=== PATIENT | male | born 1980 | race Caucasian/White ===

== ENCOUNTER 2024-09-20 14:55 | Emergency (ER) | payer OTHER, SELFPAY ==
--- OUTSIDE RECORDS SUMMARY | 2024-09-20 14:57 | XMS_ITS | Clinical Summary ---
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 Primary Care Prov ider Unavailable Allergies Active Allergy Reactions Criticality Noted Date Comments Penicillins 08/09/2010 Medications ACETAMINOPHEN/CA FFEINE (EXCEDRIN ORAL) Take 2 Tabs by mouth. 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 Gender Identity Not on file Sexual Orientation Not on file Obstetrics History Last Filed Vital Signs Vital Sign Reading Time Taken Comments Blood Pressure 128/66 06/08/2013 10:42 PM BANDAGE MAKER Pulse 103 06/08/2013 10:42 PM BANDAGE MAKER Temperature 37.7 C (99.9 F) 06/09/2013 2:13 AM BANDAGE MAKER Respiratory Rate 22 06/08/2013 10:16 PM BANDAGE MAKER Oxygen Saturation 98% 06/08/2013 10:42 PM BANDAGE MAKER Inhaled Oxygen Concentration - - Weight 65.8 kg (145 lb) 06/08/2013 10:16 PM BANDAGE MAKER Height 175.3 cm (5' 9) 06/08/2013 10:16 PM BANDAGE MAKER Body Mass Index 21.41 06/08/2013 10:16 PM BANDAGE MAKER Plan of Treatment Health Maintenance Due Date Last Done Comments Tdap 1993 Depression screening for age 12+ 1994 HIV for age 15-65 1997 BMI (ht and wt on same day) for age 18+ 2000 Hepatitis C screening for ag e 18-79 2000 Tetanus booster 2002 Lipids for age 35-44 2017 COVID-19 vaccine series ( - 2023- season) 2024 Influenza Vaccine (Season Ended) 2025 Pneumococcal series for age 6-49 Aged Out No longer eligible based on patient's age to complete this topic Insurance [employer] ELECT Care Teams Die Cutter Relationship Specialty Start Date End Date Maria Eugenia [facility] PCP - General 04/12/21
[2024-09-20 15:03] VITALS: BP 136/84; PULSE 82; RESP 18; TEMP 36.9; O2SAT 98; BMI 24.2
--- NOTE | 2024-09-20 15:11 | ED.GENADULT ---
HPI - General Adult General Date Seen: 09/20/24 Chief complaint: Eye Problems Stated complaint: Chunk of metal under left eye Time Seen by Provider: 09/20/24 15:10 History of Present Illness HPI narrative: Pleasant 43-year-old female presenting to the ER today with a injury and foreign body pes duration into his left cheek. He was at work using an air hammer when a piece of metal broke off and fluid is face. He did have a small bit of the metal air hammer bit stuck in his face any thinks he pulled it out but he saw something else possibly stuck in there. He feels like the skin of his cheek next to the laceration might be a little bit firm and is worried that there may still be a metallic foreign body there but he is unsure. It did not actually go into his left eye. Bleeding was controlled prior to arrival. He is unsure of his last tetanus shot. He is not sure he wants to have 1 today. He is otherwise generally healthy. Related Data Home Medications ?Medication ?Instructions ?Recorded ?Confirmed No Known Home Medications 09/22/22 09/20/24 Allergies Allergy/AdvReac Type Severity Reaction Status Date / Time Penicillins Allergy Unknown Verified 09/20/24 15:08 [facility] Medical History (Updated 09/20/24 @ 17:06 by Max Mc MD) Viral infection ?B34.9 - Viral infection, unspecified (ICD-10) Social History Smoking Status: Never smoker Exam Narrative: Exam Narrative: Constitutional: Appears well-developed and well-nourished. Active. Non-toxic appearing. HENT: Head: Calvarium atraumatic. Nose: No nasal discharge. Mouth/Throat: Mucous membranes are moist. Pharynx is normal. Tonsils symmetric. Uvula midline. Airway patent. There is a 3 mm linear laceration on the left cheek over the zygoma just a little bit lateral to the mid pupillary line. The foreign body puncture is about 3 cm inferior to the eye and does not seem to involve the globe of the eye or the orbit of the eye or the lower lid. The lacerations on the cheek. Intact infraorbital nerve sensory function. Normal smiling and no facial droop. No intraoral injury. No nasal bleeding. Eyes: Conjunctivae normal and EOM are normal. Pupils are equal, round, and reactive to light. Right eye exhibits no discharge. Left eye exhibits no discharge. No icterus. Neck: Normal range of motion. Neck supple. No adenopathy. No stridor. Cardiovascular: Normal rate and regular rhythm. No murmur heard. No murmurs, rubs, or gallops. Brisk capillary refill Pulmonary/Chest: Effort normal. No stridor. No respiratory distress. Musculoskeletal: Normal range of motion. No edema. No tenderness. No deformity. Neurological: Alert. Normal strength. No cranial nerve deficit or sensory deficit. Coordination normal. GCS eye subscore is 4. GCS verbal subscore is 5. GCS motor subscore is 6. Skin: Skin is warm. No rash noted. Const: Vital Signs, click to edit/add: Vital Signs - 24 hr 09/20/24 15:03 Temperature 98.5 F Pulse Rate [Right Pulse Oximeter] 82 Respiratory Rate 18 Blood Pressure [Ri ght Upper Arm] 136/84 Pulse Oximetry 98 Oxygen Delivery Me thod Room Air Course Vital Signs Vital signs: Initial Vital Signs Temperature 98.5 F 09/20/24 15:03 Temperature Source Temporal Artery Scan 09/20/24 15:03 Pulse Rate 82 09/20/24 15:03 Pulse Rhythm Regular, Irregular 09/20/24 15:03 Pulse Strength 3+ Normal 09/20/24 15:03 Respiratory Rate 18 09/20/24 15:03 Blood Pressure 136/84 09/20/24 15:03 Blood Pressure Mean 101 09/20/24 15:03 Blood Pressure Position Sitting 09/20/24 15:03 Pulse Oximetry 98 09/20/24 15:03 Oxygen Delivery Method Room Air 09/20/24 15:03 Vital Signs Temperature 98.5 F 09/20/24 15:03 Pulse Rate 82 09/20/24 15:03 Respiratory Rate 18 09/20/24 15:03 Blood Pressure 136/84 09/20/24 15:03 Pulse Oximetry 98 09/20/24 15:03 Oxygen Delivery Method Room Air 09/20/24 15:03 Temperature 98.5 F 09/20/24 15:03 Pulse Rate 82 09/20/24 15:03 Respiratory Rate 18 09/20/24 15:03 Blood Pressure 136/84 09/20/24 15:03 Pulse Oximetry 98 09/20/24 15:03 Oxygen Delivery Method Room Air 09/20/24 15:03 Medical Decision Making MDM Narrative Medical decision making narrative: Findings and exam are consistent with an puncture wound to his left cheek that occurred this afternoon while he was at work. He was wearing safety goggles and using an air hammer when the air in her bit broke off and a piece of it struck him in left she just adjacent to the zygoma. Fortunately this is a few cm distant from his eye and there is no evidence for any ocular or orbital injury. With the he does have a small 5 mm puncture wound on the cheek but no definite palpable foreign body on exam. Discussed options for workup including local anesthesia with exploration forceps verses imaging with x-ray. Patient says he does not like needles and would prefer to get x-ray to see if there really is a foreign body in there or not. X-rays obtained confirms a foreign body. After this, with verbal consent we did administer local anesthesia with lidocaine and removed the foreign body using splinter forceps. After the foreign body was removed, the wound was cleansed. We closed the laceration as noted above. There is no evidence at this time to suggest any associated fracture. There is no evidence to suggest intracranial injury and patient is neurologically in tact. The patient is to follow up for suture removal as instructed in 5-7 days if they don't dissolve and fall out on their own. Indications to seek urgent reevaluation and signs of infection (including but not limited to increasing pain, redness, swelling, fevers, and drainage) were reviewed. Tetanus is up-to-date. This is a clean and noncontaminated wound in which prophylactic antibiotics are not indicated. An understanding of the discharge instructions and need for follow up were verbally confirmed. Imaging Data X-ray face: Attestation: I have reviewed the pertinent imaging results. My impression: Radiopaque foreign body in the left cheek. Radiologist's impression: Findings/Impression: No acute fracture or malalignment. Metallic foreign body measuring approximately 9 x 4 millimeters, likely within the soft tissues immediately adjacent to the left zygomatic bone. No suspicious osseous lesions. Multiple dental crowns/amalgams. Discharge Plan Discharge Clinical Impression: Foreign body of face Patient Disposition: Home, Self-Care Condition: Stable Instructions: Puncture Wound (ED), Facial Laceration (ED) Additional Instructions: As we discussed, I am glad I can get the foreign body out for you. We placed 1 stitch into the wound on your skin to help it heal with a smaller scar. Please follow-up with your regular doctor to have the stitch removed in 7 days. In the meantime keep the wound clean. Wash it gently once per day with warm water. After it is cleaned let it air dry and then reapply a small amount of antibiotic ointment and a Band-Aid to keep the wound covered every day until you have the stitch removed. If you have any concerns such as uncontrolled bleeding, new redness or swelling or pus draining from her wound, or any other problems, please return to the emergency department right away. Prescriptions: No Action No Known Home Medications Follow Up/Referrals: Provider,Not a Local [Primary Care Provider] - Stand Alone Forms: [facility] Info Instructions Procedures Foreign Body Removal Site: left (Left cheek) Description of foreign body: other (Metallic foreign body, piece of a broken hammer drill bit) Sedation/Analgesia: other (Local anesthesia with 1% lidocaine with epinephrine-2 mL. Good anesthesia retrieved.) Technique: removal with forceps Confirmed by:: direct visualization Complications: none Laceration Left cheek laceration: Pre procedure diagnosis: Left cheek laceration, puncture wound. Foreign body already removed Verification/time out: correct patient Site: face (Left cheek) Side (If applicable): left Size (cm): 0.5 Description: linear Depth: simple, single layer Local Anesthetic: lidocaine 1% and with epi Skin layer closed with: nylon Size (cm): 6-0 Number of sutures: 1 Technique: simple, interrupted
--- NOTE | 2024-09-20 15:19 | CRLHL7_ITS ---
For Patients: As a result of the Century Cures Act, medical imaging exams and procedure reports are released immediately into your electronic medical record. You may view this report before your referring provider. If you have questions, please contact your health care provider. Indication: projectile to L cheek, possible FB Technique: Two views of the facial bones Comparison: None Findings/Impression: No acute fracture or malalignment. Metallic foreign body measuring approximately 9 x 4 millimeters, likely within the soft tissues immediately adjacent to the left zygomatic bone. No suspicious osseous lesions. Multiple dental crowns/amalgams. Dictated by Tr Linder MD @ 09/20/2024 4:20:51 PM (Electronically Signed)
--- OUTSIDE RECORDS SUMMARY | 2024-09-20 15:40 | XMS_ITS | Clinical Summary ---
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 Gender Identity Not on file Sexual Orientation Not on file Obstetrics History Last Filed Vital Signs Vital Sign Reading Time Taken Comments Blood Pressure 128/66 06/08/2013 10:42 PM REMOTE CONTROL ASSEMBLER Pulse 103 06/08/2013 10:42 PM REMOTE CONTROL ASSEMBLER Temperature 37.7 C (99.9 F) 06/09/2013 2:13 AM REMOTE CONTROL ASSEMBLER Respiratory Rate 22 06/08/2013 10:16 PM REMOTE CONTROL ASSEMBLER Oxygen Saturation 98% 06/08/2013 10:42 PM REMOTE CONTROL ASSEMBLER Inhaled Oxygen Concentration - - Weight 65.8 kg (145 lb) 06/08/2013 10:16 PM REMOTE CONTROL ASSEMBLER Height 175.3 cm (5' 9) 06/08/2013 10:16 PM REMOTE CONTROL ASSEMBLER Body Mass Index 21.41 06/08/2013 10:16 PM REMOTE CONTROL ASSEMBLER Plan of Treatment Health Maintenance Due Date [...] this topic Insurance [employer] ELECT Care Teams 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
== END 2024-09-20 17:10 | disposition home or self-care (01) ==
PROVIDERS: Emergency Provider Emergency Medicine
DX: S01.442A Puncture wound with foreign body of left cheek and temporomandibular area, initial encounter (principal); W20.8XXA Other cause of strike by thrown, projected or falling object, initial encounter
CPT/HCPCS: 12011; 10120; 70140; 99282; 99283